=== PATIENT | female | born 1955 | race Caucasian/White ===

== ENCOUNTER → 2017-06-22 | Outpatient (CLI) | payer BC ==
[~2017-06-22] MED LIST: REGADENOSON 0.4 MG/5 ML SYR ONE
--- NOTE | 2017-06-22 16:51 | MYOCARDIAL PERFUSION SCAN ---
STUDY REQUESTED BY: Galina Jordan. TYPE OF STUDY: ONE-DAY NUCLEAR MEDICINE TECHNETIUM-99M CARDIOLITE MYOCARDIAL PERFUSION SCAN. INDICATION: Exertional dyspnea. ECHOCARDIOGRAM: Baseline EKG shows normal sinus rhythm at a ventricular rate of 91 with a right bundle branch block. LEXISCAN ECHOCARDIOGRAM: Heart rate madai from 91 to 122, blood pressure peaked at 160/77. With Lexiscan, there were no ST changes or significant arrhythmias. STUDY TECHNIQUE: For the stress portion of the study, 32.3 mCi of technetium-99m Cardiolite IV was injected at 13:42 on 06/22/2017. Thirty minutes following the injection, imaging of the heart was performed in multiple projections. For the rest portion of the study, 10.8 mCi of technetium-99m Cardiolite was injected IV at 11:40. One hour following injection, imaging of the heart was performed in the same projections. STUDY FINDINGS: Rotating raw images were reviewed in detail. There was a lateral breast shadow impacting the lateral imaging border of the heart. There was mild gut and liver uptake impacting the inferior imaging heart, more so on stress than on rest. There was no significant pathologic extracardiac uptake. The short axis, horizontal long axis, vertical long axis images were reviewed in detail. There was a moderate in severity, moderate to large in size reversible perfusion defect involving the apex and apical anterior lateral and inferior segments. There was also a reversible perfusion defect involving the inferior wall, although this may represent artifact in the setting of inferior attenuators and preserved inferior motion. LV function was borderline with calculated EF of 45%. LV size was normal with an end-diastolic volume of 89 mL. There was mild mid to apical anterior, anterior lateral hypokinesis. IMPRESSION: 1. Positive myocardial perfusion scan for Lexiscan-induced ischemia in the apex and apical anterior, lateral, inferior segments. 2. Small inferior perfusion which suspect secondary to study artifact. Less likely represents multivessel disease. 3. Normal left ventricular size, borderline left ventricular function with an ejection fraction of 45%. Anterior, anterolateral mild hypokinesis involving mid to apical segments. 4. Nondiagnostic stress ECG in the setting of inability to reach target heart rate. MTDD
== END | disposition home or self-care (01) ==
LOC: C.NUCL 11:15
PROVIDERS: ATTEND Family Medicine
DX: R06.02 Shortness of breath (principal); R00.0 Tachycardia, unspecified